=== PATIENT | female | born 1965 | race Caucasian/White ===

== ENCOUNTER 2023-11-17 05:24 | Day surgery (SDC) | payer BC ==
[~2023-11-17] VITALS: Ht 167.6 cm; Wt 93.8 kg
[~2023-11-17 05:24] MED LIST: LR 1,000 ML IV SCH
[2023-11-17] MEDS ORDERED: WELLBUTRIN XL150 MG PO (05:55)
[2023-11-17] MEDS ORDERED: VIIBRYD20 MG PO (05:55)
[2023-11-17] MEDS ORDERED: NEURONTIN300 MG/CAP PO (05:56)
[2023-11-17] MEDS ORDERED: PRILOSEC 20MG20 MG PO (05:57)
[2023-11-17] MEDS ORDERED: VITAMIN D31000 I1 PO (05:57)
[2023-11-17] MEDS ORDERED: ALL DAY ALLERGY10 M3 PO (05:58)
[2023-11-17] MEDS ORDERED: COMPLETE MULTI1 TAB PO (05:58)
[2023-11-17] MEDS ORDERED: VITAMIN B12 781 TAB PO (05:59)
[2023-11-17] MEDS ORDERED: PROBIOTIC-MAJOR PO (06:00)
[2023-11-17] MEDS ORDERED: CALCIUM-MAGNES1 EAC1 PO (06:02)
[2023-11-17 06:31] VITALS: BP 139/72; PULSE 55; TEMP 97.6
[2023-11-17] MEDS ORDERED: fentaNYL 50 MCG/ML 2 ML VIAL ONE (06:38)
[2023-11-17] MEDS ORDERED: dexAMETHasone 10 MG/ML VIAL ONE (06:39)
[2023-11-17] MEDS ORDERED: Ondansetron 4 MG/2 ML VIAL ONE (06:39)
[2023-11-17] MEDS ORDERED: Lidocaine PF 2% (20 MG/ML) 5 ML VIAL ONE (06:39)
--- NOTE | 2023-11-17 07:03 | NUR ---
Patient Admission: 0532 Patient ambulatory to [facility] with steady gait, breathing even and unlabored. Pt is alert and oriented. Consents reviewed and signed by the patient. IV established. LR infusion via gravity at K[facility]. Call light in reach. Warm blanket provided.
[2023-11-17] MEDS ORDERED: Ketorolac 30 MG/ML VIAL ONE (07:28)
[2023-11-17] MEDS ORDERED: fentaNYL 50 MCG/ML 1 ML SYRINGE/VIAL [PACU/SDC ONLY] IV PRN (07:30)
[2023-11-17] MEDS ORDERED: HYDROmorphone 1 MG/1 ML SYRINGE [PACU/SDC ONLY] IV PRN (07:30)
[2023-11-17] MEDS ORDERED: Ondansetron 4 MG/2 ML VIAL IV PRN (07:30)
[2023-11-17] MEDS ORDERED: droPERidol 2.5 MG/ML 2 ML VIAL IV PRN (07:30)
[2023-11-17] MEDS ORDERED: HYDROcodone/Acetaminophen 7.5-325 MG TAB PO PRN (07:45)
[2023-11-17] MEDS ORDERED: Morphine 4 MG/ML VIAL IV PRN (07:45)
[2023-11-17] MEDS ORDERED: oxyCODONE/Acetaminophen 5-325 MG TAB PO PRN (07:45)
[2023-11-17] MEDS ORDERED: Promethazine 25 MG TAB PO PRN (07:45)
[2023-11-17 08:15] VITALS: BP 129/73; PULSE 55; TEMP 97.7
[2023-11-17 08:30] VITALS: BP 110/92; PULSE 60
[2023-11-17 08:45] VITALS: BP 140/76; PULSE 49
[2023-11-17 09:00] VITALS: BP 143/74; PULSE 56
--- NOTE | 2023-11-17 11:01 | NUR ---
0810 Received report from SHELBI Quiñones. 0815 Patient returned to [facility]. Patient is alert and answers questions appropriately. 0823 Patient given juice and a muffin for a PO challenge. Tolerated well. Patient requesting prn pain med. for increasing pain sx 3-10. Medicated per order. 09 Physician discharge instructions and printed patient educational materials reviewed with the patient and her . Questions invited and answered. 09 Patient to lobby via wheelchair for a ride home with in POV.
== END 2023-11-17 09:30 | disposition home or self-care (01) ==
LOC: SDCO 05:24
DX: S89.81XA Other specified injuries of right lower leg, initial encounter (principal); M94.261 Chondromalacia, right knee; K21.9 Gastro-esophageal reflux disease without esophagitis; Z79.899 Other long term (current) drug therapy
CPT/HCPCS: J0665; J0690; J1100; J1885; J2405; J2704; J3010; J7120